=== PATIENT | female | born 1990 | race African-American/Black ===

== ENCOUNTER 2020-06-27 13:49 | Outpatient (REF) | payer OTHER, SELFPAY ==
[2020-06-30 02:08] LABS: COVID-19 RT-PCR Result NEGATIVE (Negative)
== END 2020-06-27 14:09 ==
LOC: NCHCN 13:49
PROVIDERS: PCP Family Medicine; Visit Provider Nurse Practitioner Family
DX: Z11.59 Encounter for screening for other viral diseases (principal)
CPT/HCPCS: U0003

== ENCOUNTER 2020-08-22 11:19 | Outpatient (REF) | payer MEDICAID, SELFPAY ==
--- NOTE | 2020-08-22 11:00 | PAPFT_PTH ---
PATIENT: Gay Frey LOC: [facility] U#:[id number] AGE/SX: 29/F ROOM: RE08/22/[address]: Laurence Garcia : 1990 BED: DIS: 08/22/2020 SPEC #: [id number] RECD: 08/23/20 13:01 STATUS: KADIE REJovanni #: [id number] STELLA: 08/22/20 11:[address]: Laurence Garcia DEPT: [facility] Cytology RECD BY: [address] ENTERED: 08/23/20 13:01 SP TYPE: PAPFT OTHR DR: Luna Trimble Tissues: 1 - CX/ENDOCX FOR PAP SMEARS Procedures: PAP THIN PREP/[facility] Screening Comments: [id number]
== END 2020-08-22 11:39 ==
LOC: NCHCN 11:19
PROVIDERS: PCP Family Medicine; Visit Provider Nurse Practitioner Family
DX: Z12.4 Encounter for screening for malignant neoplasm of cervix (principal)
CPT/HCPCS: 88142

== ENCOUNTER 2020-12-13 17:01 | Outpatient (REF) | payer OTHER, SELFPAY ==
[2020-12-13 16:41] LABS: HCT 38.6 % (36.0-46.0); HGB 12.8 g/dL (11.2-15.7); MCH 28.4 pg (27.0-33.0); MCHC 33.2 % (32.0-36.0); MCV 85.6 fL (80-95); MPV 10.1 fL (8.0-11.0); Platelet Count 273 10^3/uL (130-400); RBC 4.51 10^6/uL (3.93-5.22); RDW 12.6 % (11.7-14.6); RDW-SD 39.1 fL; WBC 8.42 10^3/uL (4.4-10.8)
[2020-12-13 17:12] LABS: ALT 16 U/L (14-59); AST 11 U/L (15-37); Albumin 3.4 g/dL (3.4-5.0); Alkaline Phosphatase 40 U/L (46-116); Anion Gap 8.1 mmol/L (3-11); BUN 16 mg/dL (7-18); Bilirubin, Direct 0.1 mg/dL (0.0-0.2); Bilirubin, Total 0.2 mg/dL (0.2-1.0); CO2 25.9 mmol/L (21.0-32.0); CREATININE 0.9 mg/dL (0.55-1.02); Calcium 8.6 mg/dL (8.5-10.1); Chloride 105 mmol/L (98-107); Glucose 124 mg/dL (74-106); Potassium 4.2 mmol/L (3.5-5.1); Sodium 139 mmol/L (136-145); Total Protein 6.6 g/dL (6.4-8.2)
== END 2020-12-13 17:02 | disposition home or self-care (01) ==
LOC: NCHCN 17:01
PROVIDERS: PCP Family Medicine; Visit Provider Nurse Practitioner Family
DX: R82.90 Unspecified abnormal findings in urine (principal); R79.89 Other specified abnormal findings of blood chemistry
CPT/HCPCS: 80048; 80076; 85027

== ENCOUNTER 2022-03-19 16:18 | Outpatient (REF) | payer MEDICAID, SELFPAY ==
--- OUTSIDE RECORDS SUMMARY | 2022-03-19 16:34 | XMS_ITS | Encounter Summary ---
:1990 Author Organization [facility] [place] [address] Care Team Providers Name Role Phone Unavailable Primary Care Provider Unavailable Encounter Details Date Type Department Care Team Description 11/17/2020 Orders Only Public Health at Seb Garner MD ADRIANA [address] [place] [address] [place] [address] [phone] (Wo rk) Social History Tobacco Use Types Packs/Day Years Used Date Never Assessed Sex Assigned at Date Recorded Not on file documented as of this encounter Plan of Treatment Not on filedocumented as of this encounter Visit Diagnoses Not on filedocumented in this encounter
--- OUTSIDE RECORDS SUMMARY | 2022-03-19 16:34 | XMS_ITS | Encounter Summary ---
:1990 Author Organization [facility] [place] [address] Care Team Providers Name Role Phone Unknown Primary Care Provider Unavailable Reason for Visit Reason Comments Public Health Screening Encounter Details Date Type Department Care Team Description 12/09/2020 Clinical Support Primary Care at [facility] posure to COVID-19 virus [address] [place] [address] Social History Tobacco Use Types Packs/Day Years Used Date Never Assessed Sex Assigned at Date Recorded Not on file documented as of this encounter Progress Notes Agustina Cunningham RMA - 12/09/2020 8:30 AM EDT [facility] Patient here for COVID-19 testing. Confirmed patient identity. Explained procedure to patient. Procedure completed and labels placed on specimen Gay was seen today for public health screening. Diagnoses and all orders for this visit: Exposure to COVID-19 virus - COVID-19 PCR documented in this encounter Plan of Treatment Not on filedocumented as of this encounter Procedures Procedure Name Priority Date/Time Associated Diagnosis Comme nts COVID-19 PCR Routine 12/09/2020 9:11 AM Exposure to COVID-19 R esults for this EDT virus procedure are i n the results section . documented in this encounter Results COVID-19 PCR (12/09/2020 9:11 AM EDT) [facility] Method Time Signature SARS-CoV-2 Not Detected Not Detected BEBETO RNA [facility] Comment: This result should be interpreted in com bination with the clinical observations, patient history and epidem iological information in making a final diagnosis. For testing of asymptomatic i ndividuals, assay performance characteristics and clinical utility hav e not been evaluated. Testing for SARS-CoV-2 (Severe acute respiratory syn drome coronavirus 2, formerly known as 2019 novel coronavirus or 2019-nCoV) to aid in the diagnosis of COVID-19 is performed using the [employer] S-CoV-2 Assay as authorized by the FDA Emergency Use Authorization (EUA). This EUA assay is intended for In-vitro Diagnostic (IVD) use with respiratory sp ecimens such as nasopharyngeal swabs collected from individuals during the ac richard phase of infection. This assay is performed based on the instructions for use provided by [employer] and additional guidance provided by CDC and FDA. Testing is performed in the Clinical Genomics and Advanced Technolog y Laboratory within the Department of Pathology and Laboratory Medicine at [facility], certified under the Clinical Laboratory Improvement Amendments of 1988 (CLIA), 42 U.S.C. 263a, to perform high complexi ty tests. Assay performance has been verified according to clinical laborator y regulatory requirements for use with specimens collected from individuals michael pected of COVID-19. Test results are provided above. A result of ? Not Detected? indicates that the viral RNA target is not present above the limit of detect ion, but does not preclude SARS-CoV-2 infection. False negative results may oc cur if a specimen is improperly collected, transported or handled; if am plification inhibitors are present; or if inadequate numbers of viral particles are present in the specimen. When a diagnostic test is negative, the possibi lity of a false negative result should be considered in the context of a patien t? s recent exposures and the presence of clinical signs and symptoms consisten t with COVID-19. A result of ? Detected? indicates that RNA from SARS-CoV-2 was d etected and the patient is infected. As required or requested by public health a uthorities, positive specimens may be sent for additional testing. Positive an d negative predictive values for this test are highly dependent on disease pre valence. A result of ? Invalid? indicates that neither the viral RNA tar gets nor the internal control target was detected. An invalid result suggests the presence of inhibitors. Recollection and re-testing is recommend ed in the case of an invalid result. CDC COVID-19 criteria for testing on hum an specimens and clinical management guidance information are available at e CDC Coronavirus Disease 2019 (COVID-19) webpage under ? Information for Healthcare Professionals? (https://www.cdc.gov/coronavirus/2019-nc ov/hcp/index.html) Additional information about this and ot her EUA tests can be found in provider and patient fact sheets at the following FDA website: https://www.fda.gov/medical-devices/kkicyrzfanz-ltqbnvb-3748-sjkzk-20-qmskqcejk- oxv-caqtrlpbqoiwcq-fmlahcj-devices/qeivj-mzzecobxnze-qnow SARS-Cov-2 RNA Source SENIOR CIVIL ENGINEER Swab [facility] Specimen (Source) Anatomical Collection Method Collection Time Re ceived Time Location / / Volume Laterality Nasopharyngeal swab 12/09/2020 9:11 12/09 (specimen) AM EDT 10:45 AM EDT Comment: Symptoms->Asymptomatic Resulting Agency Comment Spec In Lab Alexi Wagner MD MICROBIOLOGY - GENERAL ORDER SANDRA Performing Organization Address City/State/[place] [address] documented in this encounter Visit Diagnoses Diagnosis Exposure to COVID-19 virus documented in this encounter Care Teams Carroting Machine Operator Relationship Specialty Start Date End Date Unknown PCP - General 12/09/20 None documented as of this encounter
--- OUTSIDE RECORDS SUMMARY | 2022-03-19 16:34 | XMS_ITS | Encounter Summary ---
:1990 Author Organization [facility] Address [address] [place] [address] Care Team Providers Name Role Phone Unknown, Provider Primary Care Provider Encounter Details Date Type Department Care Team Description 08/24/2020 Lab Requisition [facility] Lisa Garcia for other Pathology & Laurence general examination Laboratory Medicine - [address] [id number] Social History Tobacco Use Types Packs/Day Years Used Date Never Assessed Sex Assigned at Date Recorded Not on file documented as of this encounter Plan of Treatment Not on filedocumented as of this encounter Procedures Procedure Name Priority Date/Time Associated Diagnosis Comme nts PAP TEST Today 08/22/2020 11:00 EST Encounter for other Results for this general examination procedur e are in the results section. documented in this encounter Results PAP TEST (08/22/2020 11:00 EST) Specimens A. Cervix and/or [facility] MEDICAL Endocervix , ThinPrep CENTER Imaging System with LABORATORY Manual Evaluation SERVICES Specimen Adequacy Satisfactory for [facility] MEDICAL Evaluation - CENTER transformation zone LABORATORY component present SERVICES General Negative for [facility] intraepithelial CENTER lesion or malignancy LABORATORY SERVICES Descriptive Shift in crystal [facility] MEDICAL Diagnosis present suggestive of CENTER bacterial vaginosis. LABORATORY SERVICES Attestation . [facility] signed by BELLA Still CT(ASCP) o n SERVICES 08/31/2020 at 1 030 Clinical History See below [facility] Performing Lab [facility] Scanned Images [facility] Specimen Pap Test - Cervix and/or Endocervix Performing Organization Address City/State/ZIP Code Phon e Number [facility] [address] [place] [address] SERVICES documented in this encounter Visit Diagnoses Diagnosis Encounter for other general examination documented in this encounter Care Teams Loader Unloader Relationship Specialty Start Date End Date Unknown, Provider, PCP - General 06/26/11 documented as of this encounter
--- OUTSIDE RECORDS SUMMARY | 2022-03-19 16:34 | XMS_ITS | Encounter Summary ---
:1990 Author Organization [facility] [place] [address] Care Team Providers Name Role Phone Unknown Primary Care Provider Unavailable Encounter Details Date Type Department Care Team Description 08/22/2021 Telephone Obstetrics and Gynecology at Radha Gutierrez, [place] [address] Social History Tobacco Use Types Packs/Day Years Used Date Current Some Day Smoker Smokeless Tobacco: Never Used Sex Assigned at Date Recorded Not on file documented as of this encounter Miscellaneous Notes Telephone Encounter - Radha Gutierrez RN - 08/22/2021 3:45 PM EST S/O: Gay Frey Returned pt call who is inquire about options for terminating . No answer asked her to return my call at [phone] Telephone Encounter - Radha Gutierrez RN - 08/22/2021 3:45 PM EST ----- Message from Almaz Woodruff sent at 08/22/2021 11:27 AM EST ----- Regarding: Family Planning Gay is currently , she is looking to terminate Please call [phone] Thank you, Ramila documented in this encounter Plan of Treatment Not on filedocumented as of this encounter Visit Diagnoses Not on filedocumented in this encounter Care Teams [employer] Science Teacher Relationship Specialty Start Date End Date Unknown PCP - General 12/09/20 None documented as of this encounter
--- OUTSIDE RECORDS SUMMARY | 2022-03-19 16:34 | XMS_ITS | Clinical Summary ---
:1990 Author Organization [facility] Address [address] [place] [address] Care Team Providers Name Role Phone Unknown, Provider Primary Care Provider Social History Tobacco Use Types Packs/Day Years Used Date Never Assessed Sex Assigned at Date Recorded Not on file Plan of Treatment Not on file Care Teams Police Detention Attendant Relationship Specialty Start Date End Date Unknown, Provider, PCP - General 06/26/11
--- OUTSIDE RECORDS SUMMARY | 2022-03-19 16:34 | XMS_ITS | Encounter Summary ---
:1990 Author Organization [facility] [place] [address] Care Team Providers Name Role Phone Unknown Primary Care Provider Unavailable Encounter Details Date Type Department Care Team Description 04/05/2021 Orders Only [facility] at [facility] Segundo Sigala Day VERTICAL CONTOUR BAND SAW OPERATOR [address] [place] [address] Social History Tobacco Use Types Packs/Day Years Used Date Never Assessed Sex Assigned at Date Recorded Not on file documented as of this encounter Plan of Treatment Not on filedocumented as of this encounter Procedures Procedure Name Priority Date/Time Associated Diagnosis Comme nts EXTERNAL PAP SMEAR Routine 08/22/2020 12:00 AM EST RESULT PANEL documented in this encounter Results External Pap Smear (08/22/2020 12:00 AM EST) Historical Provider POINT OF CARE TEST ORDERABLE S Performing Organization Address City/State/ZIP Code Phon e Number EXTERNAL LAB documented in this encounter Visit Diagnoses Not on filedocumented in this encounter Care Teams Gas System Operator Relationship Specialty Start Date End Date Unknown PCP - General 12/09/20 None documented as of this encounter
--- OUTSIDE RECORDS SUMMARY | 2022-03-19 16:34 | XMS_ITS | Encounter Summary ---
:1990 Author Organization [facility] Address [address] [place] [address] Care Team Providers Name Role Phone Unknown, Provider Primary Care Provider Encounter Details Date Type Department Care Team Description 06/22/2011 Results Only [facility] Luna Whittington MD Laboratory Services - [address] [place] [id number] [place] [address] [phone] Social History Tobacco Use Types Packs/Day Years Used Date Never Assessed Sex Assigned at Date Recorded Not on file documented as of this encounter Plan of Treatment Not on filedocumented as of this encounter Procedures Procedure Name Priority Date/Time Associated Diagnosis Comme nts PAP TEST- RESULT Routine 06/22/2011 0:00 EDT Resu lts for this ONLY procedure are i n the results section. documented in this encounter Results PAP TEST- RESULT ONLY (06/22/2011 0:00 EDT) Pathology Report: CYTOPATHOLOGY REPORT [facility] Reports generated via electronic interface contain amber ginal data; however they are lacking the format of the original re port. Caution should be taken when reading/interpreting unfo rmatted reports. Name: ? GAY DAHL ? Accession #: ? [id number] : ? 1990 (Age: 20) ??F ?Collect Date: ? 06/09 Location: ? [facility] ? Receive Date : ? 06/26/2011 Provider: ?LUNA WHITTINGTON MD Copy to: ? Specimen/Source: ? Pap Test, Cervix/Endocervix, ThinPrep Imaging System with manual evaluation Last Menstrual Period: ? SPECIMEN ADEQUACY ? Satisfactory for Evaluation - transformation zone component present GENERAL CATEGORIZATION ? Negative for Intraepithelial Lesion or Malignan cy ? Document reviewed and electronically signed by: ? LB Grant(ASCP) ? Report Date: ??07/02/2011 14:34 End of Report Specimen Performing Organization Address City/State/ZIP Code Phon e Number [facility] [address] [place] [address] SERVICES [facility] [address] [place] [address] documented in this encounter Visit Diagnoses Not on filedocumented in this encounter Care Teams Delta System Freight Car Cleaner Relationship Specialty Start Date End Date Unknown, Provider, PCP - General 06/26/11 documented as of this encounter
--- OUTSIDE RECORDS SUMMARY | 2022-03-19 16:34 | XMS_ITS | Encounter Summary ---
:1990 Author Organization [facility] [place] [address] Care Team Providers Name Role Phone Unavailable Primary Care Provider Unavailable Encounter Details Date Type Department Care Team Description 12/08/2020 Telephone Primary Care at [facility] Radha Witt cia RN Day [place] [address] Social History Tobacco Use Types Packs/Day Years Used Date Never Assessed Sex Assigned at Date Recorded Not on file documented as of this encounter Miscellaneous Notes Telephone Encounter - Saundra Witt RN - 12/08/2020 4:36 PM EDT Exposed 12/03/20. Asymptomatic. Requires test for work. High Threat Infection Intake Questions Best Contact number: [phone] PATIENT TRIAGE: See above COVID-19 Screening and Testing Protocol According to The Center for Disease Control and Prevention (CDC), the following symptoms may indicate COVID-19 if they are new, and not explained by another health condition: COVID-19 Symptoms (select all that apply): asymptomatic Are you a [] Healthcare worker [] Teacher [] Student 1. EXPOSURE: Patient reported date of exposure 12/03/20; patient advised that testing should be done 5 - 7 days after close contact to a person with COVID-19 ([facility] does note recommend testing out of quarantine). 2. ASYMPTOMATIC PATIENTS (no signs or symptoms suspicious for COVID-19)- Check all that apply. [] Patients being admitted to facilities that require testing prior to admission (ideally done 24-48hours prior to ) [] Patients being admitted for stem cell or solid organ transplant (ideally done 24-48 hours prior to admission) [] We are performing community asymptomatic screening for: family members or close contacts of confirmed COVID-19 cases; members of or healthcare workers at group homes/shelters, chcf facilities or directional survey drafter care facilities (LTCFs); and all first responders. [] For patients with an [facility] primary care provider (PCP), we perform asymptomatic screening required for school, work, or travel. [] Community testing of resident within the [facility] service region ([place], [place], [place], [place], [place], [place], [place], [place], [place], [place], [place], [place]) 3. TESTING FOR VARIANTS OF CONCERN (select all that apply) [] Domestic Travel in the past 14 days. [] International Travel in the past 14 days. [] Previously diagnosed with COVID - 19 in the past 90 days, but concern for re-infection due to exposure and or symptoms. [] Fully vaccinated against COVID - 19, but concern for new infection due to exposure and or symptoms. 4. WEEKEND TESTING - URGENT - SYMPTOMATIC OR EXPOSURE [] Provider will call [phone] and give the patient information to the nurse. The nurse willthen contact the patient with an appointment time. PLAN [x] Patient scheduled for testing [] Patient scheduled for an appointment with provider [] Respiratory Clinic [] [facility] [place] TH [] Patient declined provider appointment [] Triage note sent to provider for input [] After hours - Inform patient to call clinic [phone] in am to arrange testing. Route note to [facility] PRIMARY CARE NURSE [place] [] Patient referred to emergency department. Emergency department notified. Patient instructions: All symptomatic patients or those with known exposure should self-quarantine until they receive a negative test. If possible they should stay in a separate room from other household members. COVID-19 Quarantine: [place] Quarant[place] Guide ([place].gov) [place] Isolation Guide ([place].gov) documented in this encounter Plan of Treatment Not on filedocumented as of this encounter Results COVID-19 PCR (12/09/2020 9:11 AM EDT) [facility] Method Time Signature SARS-CoV-2 Not Detected Not Detected BEBETO [facility] Comment: This result should be interpreted [...] diagnosis of COVID-19 is performed using the [employer] S-CoV-2 Assay as authorized by the FDA Emergency Use Authorization (EUA). This EUA assay is intended for In-vitro Diagnostic (IVD) use with respiratory sp ecimens such as nasopharyngeal swabs collected from individuals during the ac richard phase of infection. This assay is performed based on the instructions for use provided by [employer]. and additional guidance provided by CDC and FDA. Testing is performed in the Clinical Genomics and Advanced Technolog y Laboratory within the Department of Pathology and Laboratory Medicine at [facility], certified under the Clinical Laboratory Improvement Amendments [...] clinical management guidance information are available at [facility] CDC Coronavirus Disease 2019 (COVID-19) webpage under ? Information for Healthcare Professionals? (https://www.cdc.gov/coronavirus/2019-nc ov/hcp/index.html) Additional information about this and ot her EUA tests can be found in provider and patient fact sheets at the following FDA website: https://www.fda.gov/medical-devices/cybbfiygmtu-uktxtqn-5153-tsxdv-74-zsjsavqab- eai-uobcbafnmxyfpw-bhoenjq-devices/juena-fnxzvvdsejm-sjft SARS-Cov-2 RNA Source EDITOR PRODUCER Swab [facility] Specimen (Source) Anatomical Collection Method Collection Time Re ceived Time Location / / Volume Laterality Nasopharyngeal swab 12/09/2020 9:11 12/09 (specimen) AM EDT 10:45 AM EDT Comment: Symptoms->Asymptomatic Resulting Agency Comment Spec In Lab Alexi Wagner MD MICROBIOLOGY - GENERAL ORDER SANDRA Performing Organization Address City/State/[place] [address] documented in this encounter Visit Diagnoses Diagnosis Exposure to COVID-19 virus documented in this encounter
--- OUTSIDE RECORDS SUMMARY | 2022-03-19 16:34 | XMS_ITS | Encounter Summary ---
:1990 Author Organization [facility] Address [address] [place] [address] Care Team Providers Name Role Phone Unknown, Provider Primary Care Provider Encounter Details Date Type Department Care Team Description 06/28/2020 Lab Requisition [facility] Outr Resulting Lab, Pathology & Laboratory Provider [facility] [address] [place] [address] Social History Tobacco Use Types Packs/Day Years Used Date Never Assessed Sex Assigned at Date Recorded Not on file documented as of this encounter Plan of Treatment Not on filedocumented as of this encounter Procedures Procedure Name Priority Date/Time Associated Comments Diagnosis DO NOT ORDER Today 06/27/2020 13:15 Results for this STANDALONE - BROAD EDT procedure are in COVID TEST the results section. COVID-19 TESTING Routine 06/27/2020 13:15 Results for this EDT procedure are i n the results section. documented in this encounter Results DO NOT ORDER STANDALONE - BROAD COVID TEST (06/27/2020 13:15 EDT) COVID-19 rt-PCR NEGATIVE Negative [facility] Result Comment: LABORATORY 2019-novel Coronavirus (2019 -nCoV) not detected by the qRT-PCR assay. Consider testing for other respiratory viruses or re-collecting for 2019-nCoV testing. Note: Optimum timing for peak viral levels du ring infections caused by 20 -nCoV have not been determined. Collection of multiple specimens from the same patient may be necessary to detect the virus. Limitations Positive results are indicat nicole of active infection with SARS-CoV-2 but do not rule out bacterial infection or co-infection with other viruses. The agent detected may not be the definite cause of diseas e. In addition, detection of viral RNA may not indicate the presence of infectious virus or that SARS-CoV-2 is the causative agent for clinical symptoms. Negative results do not prec lude SARS-CoV-2 infection and should not be used as the sole basis for patient management decisions. Negative results must be combined with clinical observations, patient his tory, and epidemiological in formation. False negative results may also occur if amplification inhibitors are present in the specimen or if inadequate numbers of organisms are present in the specimen. Op timum specimen types and nasim ing for peak viral levels during infections caused by SARS-CoV-2 have not been fully determined. Collection of multiple specimens (types and time points) from the same patient may be necessary to detect the virus. The test was validated for u with upper respiratory specimens obtained via nasopharyngeal or oropharyngeal swabs in VTM, UTM, M4, M5, M6, saline, and MTM media. The performance of this test has not be en established for other spe cimens. Specimens collected using other FDA recommended Specimen Collection Materials listed in the FDA COVID-19 [employer] communication (December 03, 2019) are pr ocessed with the caveat that they were not all validated for use with this test and the result must be interpreted in this context. Furthermore, a false negative results may occur if a specimen is improperly collected, transported or handled. If the virus mutates in the RT-PCR target region, SARS-CoV-2 may not be detected or may be detected less predictably. Inhibitors or other types of interference may produce a false negative result. An interference study evaluating the effect of common cold medications was not performed. This test is not FDA-cleared but its performance characteristics were established by our CLIA-certified, CAP-accredited, high complexity laboratory in accordance with CLIA regulations, [employer] (CAP) guidel radha (Nov 26, 2019), and FDA guidance (Nov 07, 2019). This test is only for use un lila the Food and Drug Administration's Emergency Use Authorization. Specimen Swab - Entire nasopharynx (body structur e) Performing Organization Address City/State/ZIP Code Phon e Number [facility] [place] [place] COVID-19 TESTING (06/27/2020 13:15 EDT) COVID-19 rt-PCR NEGATIVE Negative [facility] Result Comment: LABORATORY 2019-novel Coronavirus (2019 -nCoV) not detected by the qRT-PCR assay. Consider testing for other respiratory viruses or re-collecting for 2019-nCoV testing. Note: Optimum timing for peak viral levels du ring infections caused by 20 -nCoV have not been determined. Collection of multiple specimens from the same patient may be necessary to detect the virus. Limitations Positive results are indicat nicole of active infection with SARS-CoV-2 but do not rule out bacterial infection or co-infection with other viruses. The agent detected may not be the definite cause of diseas e. In addition, detection of viral RNA may not indicate the presence of infectious virus or that SARS-CoV-2 is the causative agent for clinical symptoms. Negative results do not prec lude SARS-CoV-2 infection and should not be used as the sole basis for patient management decisions. Negative results must be combined with clinical observations, patient his tory, and epidemiological in formation. False negative results may also occur if amplification inhibitors are present in the specimen or if inadequate numbers of organisms are present in the specimen. Op timum specimen types and nasim ing for peak viral levels during infections caused by SARS-CoV-2 have not been fully determined. Collection of multiple specimens (types and time points) from the same patient may be necessary to detect the virus. The test was validated for u with upper respiratory specimens obtained via nasopharyngeal or oropharyngeal swabs in VTM, UTM, M4, M5, M6, saline, and MTM media. The performance of this test has not be en established for other spe cimens. Specimens collected using other FDA recommended Specimen Collection Materials listed in the FDA COVID-19 [employer] communication (December 03, 2019) are pr ocessed with the caveat that they were not all validated for use with this test and the result must be interpreted in this context. Furthermore, a false negative results may occur if a specimen is improperly collected, transported or handled. If the virus mutates in the RT-PCR target region, SARS-CoV-2 may not be detected or may be detected less predictably. Inhibitors or other types of interference may produce a false negative result. An interference study evaluating the effect of common cold medications was not performed. This test is not FDA-cleared but its performance characteristics were established by our CLIA-certified, CAP-accredited, high complexity laboratory in accordance with CLIA regulations, [employer] (CAP) guidel radha (Nov 26, 2019), and FDA guidance (Nov 07, 2019). This test is only for use un lila the Food and Drug Administration's Emergency Use Authorization. 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
--- OUTSIDE RECORDS SUMMARY | 2022-03-19 16:34 | XMS_ITS | Encounter Summary ---
:1990 Author Organization [facility] Address [address] [place] [address] Care Team Providers Name Role Phone Unknown Primary Care Provider Unavailable Reason for Visit Consultation (Routine) - Closed Specialty Diagnoses / Procedures Referred By Contact Refer red To Contact Obstetrics and Diagnoses Encounter for general adult medical examination without abnormal findings Irregular menstruation, unspecified [facility] Gynecology Procedures Establish care. Breakthrough bleeding Laurence [address] [place], [place] [phone] Fax: Referral ID Status Reason Start Date Expiration Date Visits V isits Requested Authorized [id number] Closed Consult, 03/20/2021 03/20/2022 12 12 Test & Treat Encounter Details Date Type Department Care Team Description 04/10/2021 Office Visit [facility] at [facility] Brittnyelsie, Larissaa reunia, female; RUPESH Reyes PMDD (premenstrual dysphoric disorder) [address] [place] [address] [phone] [place], [place] [address] Social History Tobacco Use Types Packs/Day Years Used Date Current Some Day Smoker Smokeless Tobacco: Never Used Sex Assigned at Date Recorded Not on file documented as of this encounter Last Filed Vital Signs Vital Sign Reading Time Taken Comments Blood Pressure 98/58 04/10/2021 8:46 AM EDT Pulse 62 04/10/2021 8:46 AM EDT Temperature - - Respiratory Rate - - Oxygen Saturation 99% 04/10/2021 8:46 AM EDT Inhaled Oxygen Concentration - - Weight 54 kg (119 lb) 04/10/2021 8:46 AM EDT Height 154.5 cm (5' 0.83) 04/10/2021 8:46 AM EDT Body Mass Index 22.61 04/10/2021 8:46 AM EDT documented in this encounter Progress Notes Mame Moses PA - 04/10/2021 8:30 AM EDT CC: No chief complaint on file. Subjective: HPI: Gay Frey is a 30 y.o. woman presenting to the [facility] with: discomfort with intercourse, premenstrual symptoms HPI 1) PMS/PMDD - uses NuvaRing continously, will get periods every 3 months. Will have severe mood symptoms, feels like the world is going to end and once her period starts that improves. Also gets cramps before and with periods. Has depression, started on celexa in October and feels it is helping. 2) gets pelvic cramping with penetration and after intercourse. Gets burning after ejaculation, resolves after a few hours. Denies vaginal bleeding, abnormal discharge, irritation, itching. Partner hasherpes, disclosed this a few weeks ago. ROS: Review of Systems Objective: VS: BP 98/58 Pulse 62 Ht 154.5 cm (5' 0.83) Wt 54 kg (119 lb) LMP 03/27/2021 (Exact Date) SpO2 99% BMI 22.61 kg/m?? Physical Exam Pelvic exam: VULVA: normal appearing vulva with no masses, tenderness or lesions, VAGINA: normal appearing vagina with normal color and discharge, no lesions, CERVIX: normal appearing cervix without discharge or lesions, slightly tender to palpation, nonfriable, UTERUS: uterus is normal size, shape, co nsistency and nontender, ADNEXA: normal adnexa in size, nontender and no masses, Assessment and Plan: Diagnoses and all orders for this visit: Dyspareunia, female - lidocaine (XYLOCAINE) 2 % jelly; Apply topically as needed. - GC/Chlamydia ([facility]/CGP/APD/NLH) Cervical - Trichomonas Gene Amp ([facility]/CGP/APD/NL) Cervical PMDD (premenstrual dysphoric disorder) Gay is a 30 y.o. female with: 1) mild cervical tenderness - no CMT, nonfriable, no discharge 2) dyspareunia 3) PMDD ?? Swab collected for GC/Chlamydia/Trichomonas. Vaginal opening is narrow, seems to get pain with tissue being dragged against pubic symphysis. Burning with ejaculation could be d/t small microabrasions during intercourse if not well lubricated enough. Recommend lubrication, samples given today. Also discussed possible human seminal plasma allergy. Can try using condoms to see if that alleviates burning after intercourse. Can also use small amount lidocaine jelly at top of introitus. ?? Recommend using NuvaRing continuously, will discuss with PCP as she manages patient's contraception and depression FOLLOWUP: as needed RUPESH Almendarez 04/10/2021 documented in this encounter Plan of Treatment Not on filedocumented as of this encounter Procedures Procedure Name Priority Date/Time Associated Comments Diagnosis HC TRICHOMONAS GENE Routine 04/10/2021 1:57 PM Dyspareunia, fe male Results for this AMPLIFICATION EDT procedure are in the results section. HC GC GENE AMP Routine 04/10/2021 1:57 PM Dyspareunia, female Results for this EDT procedure are i n the results section. documented in this encounter Results Trichomonas Gene Amp ([facility]/CGP/APD/[facility]) Cervical (04/10/2021 1:57 PM EDT) Analysis Performed At Patho logist Time Signature Trich Gene Amp Negative Negative [facility] Comment: The only FDA approved specimen types for this assay are cervix and vaginal. Trich Source Cervical [facility] Specimen Anatomical Collection Method Collection Time Receive d Time (Source) Location / / Volume Laterality Cervical 04/10/2021 1:57 PM 4:33 EDT PM EDT Resulting Agency Comment Spec In Lab Seb Cox MD MICROBIOLOGY - GENERAL ORDER SANDRA Performing Organization Address City/State/ZIP Code Phon [place] [address] GC/Chlamydia ([facility]/CGP/APD/NLH) Cervical (04/10/2021 1:57 PM EDT) P athologist Signature GC Gene Amp Negative Negative [facility] Comment: The only FDA approved specimen types for this assay are cervical, vaginal, urethral and urine. Non-FDA approved fanta rces are eye, throat and rectal and have been internally validated. GC Source Cervical [facility] Chlamydia Gene Amp Negative Negative [facility] Comment: The only FDA approved specimen types for this assay are cervical, vaginal, urethral and urine. Non-FDA approved fanta rces are eye, throat and rectal and have been internally validated. Chlamydia Source Cervical [facility] Specimen Anatomical Collection Method Collection Time Receive d Time (Source) Location / / Volume Laterality Cervical 04/10/2021 1:57 PM 4:33 EDT PM EDT Resulting Agency Comment Spec In Lab Seb Cox MD MICROBIOLOGY - GENERAL ORDER SANDRA Performing Organization Address City/State/[place] [address] documented in this encounter Visit Diagnoses Diagnosis Dyspareunia, female Dyspareunia PMDD (premenstrual dysphoric disorder) Premenstrual tension syndromes documented in this encounter 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
--- OUTSIDE RECORDS SUMMARY | 2022-03-19 16:34 | XMS_ITS | Encounter Summary ---
:1990 Author Organization [facility] [place] [address] Care Team Providers Name Role Phone Unknown Primary Care Provider Unavailable Encounter Details Date Type Department Care Team Description 12/15/2020 Orders Only [facility] at Seb Garner MD [address] [place] [address] [place] [address] [phone] (Wo rk) Social History Tobacco Use Types Packs/Day Years Used Date Never Assessed Sex Assigned at Date Recorded Not on file documented as of this encounter Plan of Treatment Not on filedocumented as of this encounter Visit Diagnoses Not on filedocumented in this encounter 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
--- OUTSIDE RECORDS SUMMARY | 2022-03-19 16:34 | XMS_ITS | Clinical Summary ---
:1990 Author Organization [facility] [address] Care Team Providers Name Role Phone Unknown Primary Care Provider Unavailable Allergies No known active allergies Medications Medication Sig Dispensed Refills Start Date End Date Status citalopram (CeleXA) Take 10 mg by mouth 0 Active 10 mg Tablet daily. etonogestreL-ethinyl Place 1 each 0 Active estradioL (NUVARING) vaginally every 28 0.12-0.015 mg/24 hr days. Insert Ring vaginally and leave in place for 3 consecutive weeks, then remove for 1 week. lidocaine Apply topically as 30 mL 0 04/10/2021 Active (XYLOCAINE) 2 % needed. jellyIndications: Dyspareunia, female Immunizations Name Administration Dates Next Due HPV, Quadrivalent 11/25/2007 Moderna Covid-19 (Rn Wound 100mcg) Vaccine 12/16/2020, 2020 Pneumococcal Polyvalent 23 11/25/2011 Tdap Vaccine 11/25/2011 Social History Tobacco Use Types Packs/Day Years Used Date Current Some Day Smoker Smokeless Tobacco: Never Used Sex Assigned at Date Recorded Not on file Last Filed Vital Signs Vital Sign Reading Time Taken Comments Blood Pressure 98/58 04/10/2021 8:46 AM EDT Pulse 62 04/10/2021 8:46 AM EDT Temperature 36.9 ??C (98.4 ??F) 12/16/2020 3:30 PM EDT Respiratory Rate - - Oxygen Saturation 99% 04/10/2021 8:46 AM EDT Inhaled Oxygen Concentration - - Weight 54 kg (119 lb) 04/10/2021 8:46 AM EDT Height 154.5 cm (5' 0.83) 04/10/2021 8:46 AM EDT Body Mass Index 22.61 04/10/2021 8:46 AM EDT Plan of Treatment Health Maintenance Due Date Last Done Comments HIV screen 2010 Hepatitis C Screening 2010 Lipid Screening 2010 Pneumococcal Vaccine: At-Risk 5-64yrs (2 - 11/24/201211/24 PCV) HPV test 2013 PAP Smear 2013 Covid-19 Vaccine (3 - Booster for Moderna 05/18/20212020, 11/18/2020 series) Tetanus vaccine 2021 11/25/2011 Influenza (Flu) vaccine (1 of - 05/10/2022 Influenza standard series) Tdap adult Completed 11/25/2011 Insurance Payer Benefit Plan Subscriber ID Effective Dates Phone Address Type / Group [facility] [id number] 2020-Edith [phone] [id number] [place] [address] Guarantor Name Account Type Relation to Date of Phone Bill ing Patient Address Gay Frey Personal/Family Self 1990 [address] [phone] ([place]) [place] [address] 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
[2022-03-19 20:19] LABS: Anion Gap 12.2 mmol/L (3-11); BUN 13 mg/dL (7-18); CO2 24.8 mmol/L (21.0-32.0); CREATININE 0.6 mg/dL (0.55-1.02); Calcium 9.2 mg/dL (8.5-10.1); Chloride 103 mmol/L (98-107); Glucose 83 mg/dL (74-106); Potassium 4.2 mmol/L (3.5-5.1); Sodium 140 mmol/L (136-145); TSH (W/Ref FT4) 0.78 uIU/mL (0.36-3.74)
[2022-03-21 10:15] LABS: Hepatitis C Ab w Rflx HCV PCR Negative (Negative)
[2022-03-21 10:28] LABS: HIV-1/2 Ag & Ab Screen Negative (Negative)
[2022-03-21 11:42] LABS: Syphilis Serology (RPR) Negative (Negative)
[2022-03-21 12:59] LABS: Chlamydia Result Negative (Negative); GC Result Negative (Negative)
== END 2022-03-19 16:19 | disposition home or self-care (01) ==
LOC: NCHCN 16:18
PROVIDERS: PCP Family Medicine; Visit Provider Nurse Practitioner Family
DX: I49.9 Cardiac arrhythmia, unspecified (principal); Z11.3 Encounter for screening for infections with a predominantly sexual mode of transmission; Z11.4 Encounter for screening for human immunodeficiency virus [HIV]; Z11.59 Encounter for screening for other viral diseases; N89.8 Other specified noninflammatory disorders of vagina
CPT/HCPCS: 80048; 86803; 87389; 87491; 87591; 84443; 86592; 87480; 87510; 87660

== ENCOUNTER 2022-03-26 02:35 | Outpatient (RCR) | payer MEDICAID, SELFPAY ==
--- NOTE | 2022-03-30 10:00 | HOLTER_ITS ---
APPROVED REPORT Conclusion This is a 48-hour Holter monitor ordered for an irregular heart rate Predominant rhythm was sinus with an average heart rate of 98. Minimum was 69, maximum 185 There were frequent ventricular ectopic beats, comprising 10% of total There were rare atrial premature beats There was no supraventricular tachycardia. Episodes labeled SVT were in fact sinus tachycardia There was no atrial fibrillation, no high-grade AV block, no pauses greater than 3 seconds There did not appear to be any patient symptoms
== END 2022-04-08 23:59 | disposition home or self-care (01) ==
LOC: RT 02:35
PROVIDERS: PCP Family Medicine; Visit Provider Nurse Practitioner Family
DX: I49.9 Cardiac arrhythmia, unspecified (principal); R00.0 Tachycardia, unspecified; R00.8 Other abnormalities of heart beat
CPT/HCPCS: 93225; 93226

== ENCOUNTER 2022-04-24 14:18 | Outpatient (REF) | payer MEDICAID, SELFPAY ==
[2022-04-26 10:55] LABS: Varicella IgG Antibody Positive (See Note)
== END 2022-04-24 14:19 | disposition home or self-care (01) ==
LOC: NCHCN 14:18
PROVIDERS: PCP Family Medicine; Visit Provider Nurse Practitioner Family
DX: Z00.00 Encounter for general adult medical examination without abnormal findings (principal); Z11.59 Encounter for screening for other viral diseases; Z01.84 Encounter for antibody response examination
CPT/HCPCS: 86787

== ENCOUNTER 2022-05-17 11:52 | Outpatient (REF) | payer MEDICAID, SELFPAY ==
[2022-05-19 12:09] LABS: COVID-19 RT-PCR UVMMC Result Negative (Negative)
== END 2022-05-17 11:53 | disposition home or self-care (01) ==
LOC: NCHCN 11:52
PROVIDERS: PCP Family Medicine; Visit Provider Nurse Practitioner Family
DX: Z20.822 Contact with and (suspected) exposure to COVID-19 (principal)
CPT/HCPCS: U0003

== ENCOUNTER 2022-09-24 15:12 | Outpatient (REF) | payer MEDICAID, SELFPAY ==
[2022-09-26 10:54] LABS: HIV-1/2 Ag & Ab Screen Negative (Negative)
[2022-09-26 11:03] LABS: Hepatitis C Ab w Rflx HCV PCR Negative (Negative)
[2022-09-26 11:34] LABS: Syphilis Serology (RPR) Negative (Negative)
[2022-09-26 13:15] LABS: Chlamydia Result Negative (Negative); GC Result Negative (Negative)
== END 2022-09-24 15:13 | disposition home or self-care (01) ==
LOC: NCHCN 15:12
PROVIDERS: PCP Family Medicine; Visit Provider Nurse Practitioner Family
DX: Z11.3 Encounter for screening for infections with a predominantly sexual mode of transmission (principal); Z11.4 Encounter for screening for human immunodeficiency virus [HIV]; Z11.59 Encounter for screening for other viral diseases
CPT/HCPCS: 86803; 87389; 87491; 87591; 86592

== ENCOUNTER 2023-11-21 10:15 | Emergency (ER) | payer MEDICAID, SELFPAY ==
[2023-11-21 10:32] VITALS: BP 110/75; PULSE 75; RESP 16; TEMP 36.8; O2SAT 99
--- NOTE | 2023-11-21 10:50 | W.ED.GENAD ---
Discharge Plan Disposition Patient Disposition: Home Condition: Improving Discharge Details Chief Complaint: GenMedical Clinical Impression: Insomnia Primary Care Provider: Laurence Garcia ED Provider: Oliver Tomas Home Meds and New Rx's Prescriptions: No Action medroxyprogesterone [Depo-Provera] 150 mg/mL suspension 150 mg IM [id number] etonogestrel-ethinyl estradiol [NuvaRing] 0.12-0.015 mg/24 hr ring 1 vag ring vaginal Q4W Qty: 3 2RF Rx Instructions: leave in place for 4 week. Remove and immediately place new ring. prazosin 1 mg capsule 1 mg PO DAILY Patient Comments: 11/14/23 per note Mame Shilpi [employer] 11/05/23 started pt on 1md nightly for nightmares to increase to 2 mg nightly after 1 wk, RH Discharge Instructions Additional Instructions: Please follow-up closely with your primary care physician HPI General Date/Time Provider Initiated Documentation: 11/21/23 10:35. HPI Narrative: 32-year-old female endorsing several days to weeks of insomnia and anxiety characterized as a feeling as if she needs to jump out of her own skin, denies SI denies HI, has good outpatient psychiatric care, was recently started on prazosin for nightmares feels as if this is not helping. Related Data Home Medications Medication Instructions Recorded Confirmed etonogestrel 0.12 mg-ethinyl 1 vag ring vaginal Q4W #3 ea 11/05/23 11/21/23 estradiol 0.015 mg/24 hr vaginal ring (NuvaRing) medroxyprogesterone 150 mg/mL 150 mg IM [id number] 11/05/23 11/21/23 intramuscular suspension (Depo-Provera) prazosin 1 mg capsule 1 mg PO DAILY 11/14/23 11/21/23 Previous Rx's Medication Instructions Recorded etonogestrel 0.12 mg-ethinyl 1 vag ring vaginal Q4W #3 ea 11/05/23 estradiol 0.015 mg/24 hr vaginal ring (NuvaRing) Allergies Allergy/AdvReac Type Severity Reaction Status Date / Time No Known Allergies Allergy Unverified 11/21/23 10:31 General Stated Complaint: GenMedical XU: 3 Review of Systems Narrative: Review of Systems Constitutional: negative Eyes: negative ENT: negative Cardiovascular: negative Respiratory: negative Gastrointestinal: negative : negative Musculoskeletal: negative Skin: negative Neurologic: Insomnia Psych: Anxiety Exam Narrative Exam Narrative: Physical Examination General: alert, awake, cooperative, resting comfortably, no acute distress HEENT: normocephalic, atraumatic; PERRL, EOM intact, conjunctiva normal; no nasal discharge; moist mucous membranes, oral and pharyngeal mucosa normal, tolerating secretions Neck: supple, trachea midline; full ROM Chest: normal to inspection Respiratory: normal respiratory effort, speaking in full sentences Cardiac: regular rate, regular rhythm, S1S2 intact, no murmurs rubs or gallops GI: abdomen soft, non-tender, non-distended; no palpable mass or hepatosplenomegaly Skin: no lesions, rashes or trauma appreciated Neuro: AAOx3, normal speech, moving all extremities Extremities: No signs of trauma Psych: Appropriate mood and affect, denies SI denies HI Course Vital Signs Vital signs: Vital Signs Temperature 36.8 C 11/21/23 10:32 Pulse 75 11/21/23 10:32 Respiratory Rate 16 11/21/23 10:32 Blood Pressure 110/75 11/21/23 10:32 Pulse Oximetry 99 11/21/23 10:32 Temperature 36.8 C 11/21/23 10:32 Temperature Source Temporal Artery Scan 11/21/23 10:32 Pulse 75 11/21/23 10:32 Respiratory Rate 16 11/21/23 10:32 Respiratory Effort Normal 11/21/23 10:46 Blood Pressure 110/75 11/21/23 10:32 Blood Pressure Position Sitting 11/21/23 10:32 Pulse Oximetry 99 11/21/23 10:32 Oxygen Delivery Method Room Air 11/21/23 10:32 Oxygen Flow Rate 0 11/21/23 10:32 Pain Level 2 11/21/23 10:32 Medical Decision Making 32-year-old female presents with persistent anxiety and insomnia over the last several weeks to months, seen by outpatient psych and has good follow-up, seen by [employer]INE [employer]PERATOR with good follow-up, scheduled for cardiac workup in the near future, no chest pain or shortness of breath denies active palpitations, started on prazosin however that she feels that this is not helping. Patient alert oriented interactive, no SI no HI appropriate, no signs of trauma intoxication or infection, neurologically intact nonmeningeal, afebrile. Consider anxiety versus electrolyte derangement versus thyroid derangement versus medication reaction; low suspicion for ACS PE malignant arrhythmia or active psychologic crisis. Will screen electrolytes, will obtain thyroid level, will perform urinalysis and urine test, will provide fluids and anxiolysis. Likely home with close follow-up 12: 44 patient resting comfortably no acute distress. Labs unremarkable. Patient feeling much better. Has close follow-up with primary care Quality:SDOH Health Related Social Needs: No Data to Display PFSH All Active Problems (Updated 11/21/23 @ 12:45 by Oliver Tomas MD) Insomnia (Acute) Cannabis abuse (Acute) Tobacco dependence (Acute) Plantar fasciitis (Acute) Pain in thoracic spine (Acute) Gastroesophageal reflux disease (Chronic) Ventricular premature beats (Acute) Post traumatic stress disorder (Acute) PMDD (premenstrual dysphoric disorder) (Acute) Medical History (Updated 11/21/23 @ 12:45 by Oliver Tomas MD) Acne Anxiety and depression Eating disorder Family History (Updated 11/15/23 @ 10:00 by Haydee Swartz RN, RN) Maternal Aunt Diabetes Mother H/O: hysterectomy d/t sti Stroke Depression Maternal Grandmother Breast cancer Agoraphobia Post traumatic stress disorder Paternal Grandmother Diabetes Lung cancer Maternal Aunt Bipolar 1 disorder Other Heart disease Hypertension Social History (Updated 11/15/23 @ 10:20 by Haydee Swartz RN, RN) Smoking/Tobacco Use Status: Current every day Tobacco Type: cigarettes Tobacco: How many years used: 14 Quit status: considering quitting Smoking risk assessment performed?: Yes Alcohol Intake: current Drug use: Daily Substance use type: marijuana Adopted: Yes Housing: house Do you feel safe at home: Yes Do you feel safe in your relationship?: Yes
[2023-11-21 11:00] LABS: Abs Immature Grans 0.03 10^3/uL (0.0-0.06); Absolute Basophil Count 0.07 10^3/uL (0.0-0.2); Absolute Eosinophil Count 0.27 10^3/uL (0.0-0.7); Absolute Lymphocyte Count 3.13 10^3/uL (1.2-3.4); Absolute Monocyte Count 0.45 10^3/uL (0.1-0.8); Absolute Neutrophil Count 5.33 10^3/uL (1.2-6.7); Basophils % 0.8; Eosinophils % 2.9; HCT 39.2 % (36.0-46.0); HGB 13.7 g/dL (11.2-15.7); Immature Grans % 0.3; Lymphocytes % 33.7; MCH 28.4 pg (27.0-33.0); MCHC 34.9 % (32.0-36.0); MCV 81 fL (80-95); MPV 8.4 fL (8.0-11.0); Monocytes % 4.8; Neutrophils % 57.5; Platelet Count 335 10^3/uL (130-400); RBC 4.83 10^6/uL (3.93-5.22); RDW 12.9 % (11.7-14.6); WBC 9.28 10^3/uL (4.4-10.8)
[2023-11-21] MEDS: Normal Saline 1,000 ML 1000 ML IV (11:12)
[2023-11-21] MEDS: LORazepam 2 MG/ML VIAL 0.5 MG IVP (11:12)
[2023-11-21 11:20] LABS: ALT 20 U/L (14-59); AST 11 U/L (15-37); Albumin 4.2 g/dL (3.4-5.0); Alkaline Phosphatase 56 U/L (46-116); Anion Gap 12.5 mmol/L (3-11); BUN 14 mg/dL (7-18); Bilirubin, Total 0.3 mg/dL (0.2-1.0); CO2 24.5 mmol/L (21.0-32.0); CREATININE 0.8 mg/dL (0.55-1.02); Calcium 9.1 mg/dL (8.5-10.1); Chloride 105 mmol/L (98-107); Estimated GFR 101.59 (mL/min/1.73m2); Glucose 115 mg/dL (74-106); Sodium 142 mmol/L (136-145); Total Protein 7.7 g/dL (6.4-8.2)
[2023-11-21 12:22] LABS: Bilirubin Small (Negative); Blood Negative (Negative); Clarity Sl Cloudy (Clear); Glucose Negative (Negative); Ketones Trace mg/dL (Negative); Leukocyte Esterase Trace (Negative); Nitrite Negative (Negative); Specific Gravity >= 1.030 (1.005-1.025); Urobilinogen 0.2 mg/dL (Up to 0.2); pH 5.5 (5-8)
[2023-11-21 12:28] LABS: Bacteria Moderate HPF (Negative); C & S Indicated? No/Sq. Contamination; Casts Negative LPF (Negative); Crystals Negative HPF (Negative); Epithelial Cells Many HPF (Negative); Mucus Heavy (Negative); RBC 0-2 HPF (0-2)
== END 2023-11-21 12:58 | disposition home or self-care (01) ==
PROVIDERS: Emergency Provider Emergency Medicine; PCP Nurse Practitioner Family
DX: G47.00 Insomnia, unspecified (principal); F41.9 Anxiety disorder, unspecified; F17.210 Nicotine dependence, cigarettes, uncomplicated
CPT/HCPCS: 36415; 80053; 81025; 96361; 96374; 99284; 81003; 81015; 84443; 85025; J2060

== ENCOUNTER → 2023-12-13 01:09 | Outpatient (CLI) | payer MEDICAID, SELFPAY ==
--- NOTE | 2023-12-13 07:30 | DI.US_ITS ---
APPROVED REPORT EXAM: Comprehensive 2D, Doppler, and color-flow Echocardiogram Patient Location: Out-Patient Snagger: Gonsalo Urias RDCS (AE) Indications: Premature ventricular complex Conclusion Normal left ventricular wall thickness and chamber size. EF is 60-65% Wall motion is normal Normal right ventricular size and function Both atria are normal in size. There are no structural or hemodynamically significant valvular abnormalities Normal estimated right ventricualr systolic pressure 18 mmHg Wall motion Left Ventricle The left ventricle is normal size. The left ventricular systolic function is normal. The left ventric ular ejection fraction is within the normal range. There is normal left ventricular wall thickness. T here is normal LV segmental wall motion. There is no ventricular septal defect visualized. LVEF is 60 -65%. Right Ventricle The right ventricle is normal size. The right ventricular systolic function is normal. Atria The left atrium size is normal. The right atrium size is normal. The interatrial septum is intact wit h no evidence for an atrial septal defect. Aortic Valve The aortic valve is normal in structure. Aortic valve is trileaflet. There is no aortic valvular sten osis. No aortic regurgitation is present. Mitral Valve The mitral valve is normal in structure. No evidence of mitral valve stenosis. There is no mitral sabrina ve regurgitation noted. Tricuspid Valve The tricuspid valve is normal in structure. There is no tricuspid valve stenosis. Mild tricuspid regu rgitation. The RVSP is 18.28 mmHg. Pulmonic Valve The pulmonary valve is normal in structure. There is no pulmonic valvular stenosis. There is no pulmo tamie valvular regurgitation. Great Vessels The aortic root is normal in size. The ascending aorta is normal in size. Aortic arch is normal in ca liber. IVC is normal in size and collapses >50% with inspiration. Pericardium There is no pericardial effusion. 2D Dimensions IVSD d PLAX 0.45 cm F: 0.6-1.0 Ao Root d 2.30 cm F: 2.7 - 3.3 LVPW d PLAX 0.38 cm F: 0.6 - 1.0 Ao Asc Diam d 2.36 cm F: 2.3 - 3.1 LVID d PLAX 4.30 cm F: 3.8 - 5.2 LVDs 2.86 cm F: 2.2 - 3.5 LV EF Teichholz 62.7 % FS 33.60 % LV EDV (Teich) 83.3 mL LV ESV (Teich) 31.1 mL Stroke Vol Index (Teich) 34.56 M-Mode TAPSE 1.75 cm (M/F) >1.7 Auto EF LV EDV A4C 103.0 mL LV EDV A2C 88.2 mL LV EDV BP 95.6 mL LV ESV A4C 41.2 mL LV ESV A2C 35.4 mL LV ESV BP 39.2 mL LVEF(%) A4C 60.0 % LVEF(%) A2C 59.9 % LVEF(%) BP 59.0 % LV SV A4C 61.8 ml LV SV A2C 52.8 ml LV SV BP 56.4 ml LV CO A4C 3.5 L/min LV CO A2C 3.7 L/min LV CO BP 3.6 L/min HR A4C 56.43 BPM HR A2C 69.37 BPM LV EDV Index (BP) LA Volume LA Length A4C 4.6 cm LA Length A2C 3.1 cm LA Area A4C s 8.17 cm2 LA Area A2C s 7.17 cm2 LA Vol A4C A-L 12.29 mL LA Vol A2C A-L 14.16 mL LA Vol Biplane A-L 16.2 mL LA Vol/BSA A4C A-L LA Vol/BSA A2C A-L LA Vol/BSA BP A-L 10.7 mL/m2 LA Vol A4C MOD 11.2 mL LA Vol A2C MOD 13.0 mL LA Vol BP MOD 14.7 mL RA Volume RA Area A4C 8.5 cm2 RA ESV A4C (A-L) 20.2mL RA Vol/BSA A4C A-L RA Length A4C 3.0 cm RA ESV A4C (MOD) 20.0mL LV Diastology MV E' medial 0.095 (>0.07 m/s) MV E Vmax 0.94 (0.4-1.3 m/s) MV E/E' MED 9.87 (<14) MV A Vmax 0.75 (0.4-1.3 m/s) MV E' lateral 0.131 (>0.1 m/s) E/A Ratio 1.3 MV E/E' LAT 7.17 (<14) MV E' Average 0.113 m/s MV E/E'(average) 8.31 Aortic Valve AoV Vmax 1.27 m/s LVOT Vmax 1.06 m/s AoV Peak Grad 6.4 mmHg LVOT Peak Grad 4.5 mmHg AoV Area (Vmax) 2.05 cm2 LVOT VTI 0.181 m AoV VTI 0.216 m LVOT Mean Grad 2.4 mmHg AoV Mean Jamal. 0.88 m/s LVOT SV 44.13 mL AoV Mean Grad 3.6 mmHg LVOT Diam s 1.75 cm AoV Area (VTI) 2.04 cm2 Velocity Ratio 0.83 Mitral Valve MV DT 128 (160-240 msec) Pulmonary Valve PV Vmax 0.99 (0.5-1.5 m/s) RVOT Vmax 0.66 m/s PV Peak Grad 4.0 mmHg RVOT Peak Gr. 1.7 mmHg PV Mean Jamal 0.71 m/s RVOT VTI 0.137 m PV Mean Grad 2.3 mmHg RVOT Mean Gr. 1.0 mmHg Tricuspid Valve RA Pressure 3.00 mmHg TR Vmax 1.95 m/s TR Peak Grad 15.2 mmHg RVSP (TR) 18.3 mmHg
== END ==
PROVIDERS: PCP Nurse Practitioner Family; Visit Provider Nurse Practitioner Family
DX: I49.3 Ventricular premature depolarization (principal)
CPT/HCPCS: 93306

== ENCOUNTER 2023-12-17 11:13 | Outpatient (CLI) | payer MEDICAID, SELFPAY ==
--- NOTE | 2023-12-17 11:00 | RT.EKG_ITS ---
APPROVED REPORT Exam: Resting ECG Reason for Exam: baseline Patient Location: O HR:61 bpm ECG Measurements Heart Rate 61 AXIS RI 130 P 58 QRSd 91 QRS 43 QT 398 T 30 QTc 401 Conclusion Sinus rhythm...normal P axis, V-rate 50- 99 Normal Electrocardiogram
== END 2023-12-17 11:14 | disposition home or self-care (01) ==
LOC: DI.CARD 11:14
PROVIDERS: PCP Nurse Practitioner Family; Visit Provider Internal Medicine Cardiovascular Disease
DX: I49.3 Ventricular premature depolarization (principal)
CPT/HCPCS: 93010

== ENCOUNTER 2024-01-20 16:06 | Outpatient (REF) | payer MEDICAID, SELFPAY ==
[2024-01-21 20:10] LABS: HIV-1/2 Ag & Ab Screen Negative (Negative)
[2024-01-21 20:23] LABS: Hepatitis C Ab w Rflx HCV PCR Negative (Negative)
[2024-01-22 12:08] LABS: Chlamydia Result Negative (Negative); GC Result Negative (Negative)
[2024-01-22 12:33] LABS: Syphilis Serology (RPR) Negative (Negative)
== END 2024-01-20 16:07 | disposition home or self-care (01) ==
LOC: NCHCN 16:06
PROVIDERS: PCP Nurse Practitioner Family; Visit Provider Nurse Practitioner Family
DX: N89.8 Other specified noninflammatory disorders of vagina (principal); Z11.3 Encounter for screening for infections with a predominantly sexual mode of transmission; Z11.4 Encounter for screening for human immunodeficiency virus [HIV]; Z11.59 Encounter for screening for other viral diseases
CPT/HCPCS: 86803; 87389; 87491; 87591; 86592; 87480; 87510; 87660

== ENCOUNTER 2024-03-18 11:10 | Outpatient (REF) | payer MEDICAID, SELFPAY ==
[2024-03-19 12:47] LABS: Chlamydia Result Negative (Negative); GC Result Negative (Negative)
== END 2024-03-18 11:11 | disposition home or self-care (01) ==
LOC: LBN 11:10
PROVIDERS: PCP Nurse Practitioner Family; Visit Provider Obstetrics & Gynecology
DX: N94.10 Unspecified dyspareunia (principal); N94.9 Unspecified condition associated with female genital organs and menstrual cycle
CPT/HCPCS: 87491; 87591; 87480; 87510; 87660